=== PATIENT | female | born 1980 | race Caucasian/White ===

== ENCOUNTER 2017-05-22 11:21 | Observation (INO) ==
[2017-05-22 12:15] LABS: Bilirubin,Urine Negative (Negative); Blood,Urine Negative (Negative); Clarity,Urine Clear (Clear); Color,Urine Yellow (Yellow); Glucose,Urine (UA) Normal (Normal); Ketones,Urine Negative (Negative); Leukocyte Esterase,Urine Trace (Negative); Nitrite,Urine Negative (Negative); PH,Urine 7.5 pH Units (5.0-8.0); Protein,Urine Negative (Neg-Trace); Specific Gravity,Urine < 1.005 (1.010-1.025); Urobilinogen,Urine Normal (Normal)
[2017-05-22 12:17] LABS: Bacteria,Urine None Seen per hpf (None-Few); Hyaline Casts,Urine None Seen per lpf (None-Few); RBC,Urine 0-3 per hpf (0-3); Squamous Epithelial Cell,Urine Many per lpf (None-Few); WBC,Urine 0-3 per hpf (0-3)
[2017-05-22 12:20] LABS: Amphetamine Screen,Urine Negative ng/mL (Cutoff=1000); Barbiturate Screen,Urine Negative ng/mL (Cutoff=200); Benzodiazepines Screen,Urine Negative ng/mL (Cutoff=200); Cannabinoid Screen,Urine Negative ng/mL (Cutoff = 50); Cocaine Screen,Urine Negative ng/mL (Cutoff= 300); Opiate Screen,Urine Negative ng/mL (Cutoff=300); Phencyclidine Screen,Urine Negative ng/mL (Cutoff=25)
--- NOTE | 2017-05-22 12:29 | OB/GYN Progress Note ---
Date of Encounter: 05/22/17 Time of Encounter: 12:27 - Assessment and Plan (1) uterine contractions in third trimester, antepartum Current Visit: Yes Status: Acute FFN and affirm collected and negative Continue CEFM while in triage Terbutaline given to stop contractions - for patient comfort - effective Follow up as scheduled Discharge home Subjective - Subjective Interval history: Pt presents with c/o contractions. Denies vb, lof, lindsey, and blurry vision. Objective - Vital Signs Vital Signs: Intake and Output 05/21/17 05/22/17 05/22/17 23:59 07:59 15:59 Other: Weight 71.6 kg Patient Weight 05/22/17 23:59 Weight 71.6 kg - Exam FHR: auscultation normal Auscultation: bilateral: normal Abdomen: Present: normal appearance, soft, gravid Uterus: Present: normal Cervical dilation: ft Cervix effacement: 40 station: -4 - Labs Labs: Abnormal lab results Ur Specific [place] < 1.005 (1.010-1.025) L 05/22/17 11:43 Ur Leukocyte Esterase Trace (Negative) H 05/22/17 11:43 Ur Squamous Epith Cells Many per lpf (None-Few) H 05/22/17 11:43
[2017-05-22] MEDS ORDERED: Terbutaline 1 MG/ML VIAL SQ ONE (12:59)
[2017-05-22 13:39] LABS: Candida DNA Not Detected (Not Detect); Gardnerella DNA Not Detected (Not Detect); Trichomonas DNA Not Detected (Not Detect)
== END 2017-05-22 15:01 | disposition home or self-care (01) ==
LOC: 1NENULAB
PROVIDERS: ADMIT Obstetrics & Gynecology; ATTEND Obstetrics & Gynecology

== ENCOUNTER → 2017-07-17 12:16 | Observation (INO) ==
[2017-07-17 10:45] LABS: Basophils % 0.2 %; Eosinophils # 0.1 K/mcL (0.0-0.6); Eosinophils % 1.2 %; Hematocrit 35.6 % (35.3-44.9); Hemoglobin 11.5 g/dL (11.5-15.4); Immature Granulocytes % 0.8 % (0-4); Lymphocytes # 1.3 K/mcL (0.6-4.6); Lymphocytes % 14.1 %; Mean Corpuscular HGB Conc 32.3 g/dL (31.6-35.5); Mean Corpuscular Volume 89.7 fL (83.0-100.0); Mean Platelet Volume 10.2 fL (9.4-12.4); Monocytes # 0.5 K/mcL (0.0-1.3); Monocytes % 5.2 %; Neutrophils # 7.1 K/mcL (1.6-8.9); Platelet Count 188 K/mcL (140-400); Red Blood Count 3.97 M/mcL (3.82-4.97); Red Cell Distribution Width 13.5 % (11.5-14.5); Segmented Neutrophils % 78.5 %
[2017-07-17 10:53] LABS: Amphetamine Screen,Urine Negative ng/mL (Cutoff=1000); Barbiturate Screen,Urine Negative ng/mL (Cutoff=200); Benzodiazepines Screen,Urine Negative ng/mL (Cutoff=200); Cannabinoid Screen,Urine Negative ng/mL (Cutoff = 50); Cocaine Screen,Urine Negative ng/mL (Cutoff= 300); Opiate Screen,Urine Negative ng/mL (Cutoff=300); Phencyclidine Screen,Urine Negative ng/mL (Cutoff=25)
[2017-07-17 11:03] LABS: Protein/Creatinine Ratio,Urine 0.12 mg/mg (0.00-0.20)
[2017-07-17 11:04] LABS: Alanine Aminotransferase 13 Units/L (7-52); Aspartate Amino Transferase 17 Units/L (13-39); BUN/Creatinine Ratio 15 (6-26); Blood Urea Nitrogen 10 mg/dL (6-20); Lactate Dehydrogenase 166 Units/L (140-271); Uric Acid 4.7 mg/dL (2.3-7.6); eGFR For African Americans > 60 (> 60); eGFR For Non-African Americans > 60 (> 60)
[2017-07-17 11:18] LABS: Bilirubin,Urine Negative (Negative); Blood,Urine Negative (Negative); Clarity,Urine Clear (Clear); Color,Urine Yellow (Yellow); Glucose,Urine (UA) Normal (Normal); Ketones,Urine Trace mg/dL (Negative); Specific Gravity,Urine 1.018 (1.010-1.025)
[2017-07-17 11:19] LABS: Leukocyte Esterase,Urine Large (Negative); Nitrite,Urine Negative (Negative); PH,Urine 6.5 pH Units (5.0-8.0); Protein,Urine Negative (Neg-Trace); Urobilinogen,Urine Normal (Normal)
[2017-07-17 11:26] LABS: Bacteria,Urine None Seen per hpf (None-Few); Hyaline Casts,Urine None Seen per lpf (None-Few); RBC,Urine 0-3 per hpf (0-3); Squamous Epithelial Cell,Urine Many per lpf (None-Few); WBC,Urine 15-30 per hpf (0-3)
--- NOTE | 2017-07-17 11:59 | OB/GYN Progress Note ---
Date of Encounter: 07/17/17 Time of Encounter: 11:55 - Assessment and Plan (1) Headache in Current Visit: Yes Status: Acute PIH labs normal Serial VE no change BPs WNL Urine, ketones present: encouraged oral hydration Discharge home with PTL and PIH precautions Return to office for scheduled visit and prn Qualifiers: Trimester: third trimester Qualified Code(s): O26.893 - Other specified related conditions, third trimester; R51 - Headache; R51 - Headache (2) 36 weeks gestation of Current Visit: Yes Status: Acute (3) Breech presentation Current Visit: Yes Status: Acute Qualifiers: Fetus number: single or unspecified fetus Qualified Code(s): O32.1XX0 - Maternal care for breech presentation, not applicable or unspecified Subjective - Subjective Principal diagnosis: Increased BP at home Interval history: 36 year old at 36 weeks and 2 days presents to triage with reports increased BP at home and HAs that are relieved with Tylenol. Denies visual disturbance, RODRIGUES and epigastric pain. Positive movement, no vaginal bleeding, no leaking fluid. Objective - Vital Signs Vital Signs: Intake and Output 07/16/17 07/17/17 07/17/17 23:59 07:59 15:59 Other: Weight 75 kg Patient Weight 07/17/17 23:59 Weight 75 kg - Exam FHR: category 1 FHR comments: FHR baseline 140 Auscultation: bilateral: normal Abdomen: Present: soft, gravid Uterus: Present: normal Cervical dilation: 1 Cervix effacement: 50 station: -2 - Labs Labs: Abnormal lab results Ur Specimen Adequacy See below A 07/17/17 10:19 Urine Ketones Trace mg/dL (Negative) H 07/17/17 10:19 Ur Leukocyte Esterase Large (Negative) H 07/17/17 10:19 Urine Microscopic WBC 15-30 per hpf (0-3) H 07/17/17 10:19 Ur Squamous Epith Cells Many per lpf (None-Few) H 07/17/17 10:19
== END | disposition home or self-care (01) ==
LOC: 1NENULAB
PROVIDERS: ADMIT Obstetrics & Gynecology; ATTEND Obstetrics & Gynecology

== ENCOUNTER → 2017-07-27 14:40 | Observation (INO) ==
[2017-07-27 13:52] LABS: Basophils % 0.1 %; Eosinophils # 0.1 K/mcL (0.0-0.6); Eosinophils % 0.7 %; Hematocrit 37.3 % (35.3-44.9); Hemoglobin 12.2 g/dL (11.5-15.4); Immature Granulocytes % 0.7 % (0-4); Lymphocytes # 1.3 K/mcL (0.6-4.6); Lymphocytes % 12.9 %; Mean Corpuscular HGB Conc 32.7 g/dL (31.6-35.5); Mean Corpuscular Hemoglobin 28.5 pg (28.0-33.3); Mean Corpuscular Volume 87.1 fL (83.0-100.0); Mean Platelet Volume 10.5 fL (9.4-12.4); Monocytes # 0.8 K/mcL (0.0-1.3); Monocytes % 7.7 %; Neutrophils # 7.6 K/mcL (1.6-8.9); Platelet Count 199 K/mcL (140-400); Red Blood Count 4.28 M/mcL (3.82-4.97); Red Cell Distribution Width 13.5 % (11.5-14.5); Segmented Neutrophils % 77.9 %
[2017-07-27 14:02] LABS: Protein/Creatinine Ratio,Urine 0.11 mg/mg (0.00-0.20)
[2017-07-27 14:12] LABS: Alanine Aminotransferase 12 Units/L (7-52); Aspartate Amino Transferase 16 Units/L (13-39); BUN/Creatinine Ratio 15 (6-26); Blood Urea Nitrogen 8 mg/dL (6-20); Lactate Dehydrogenase 168 Units/L (140-271); eGFR For African Americans > 60 (> 60); eGFR For Non-African Americans > 60 (> 60)
--- NOTE | 2017-07-27 14:39 | OB/GYN Progress Note ---
Date of Encounter: 07/27/17 Time of Encounter: 14:32 - Assessment and Plan (1) Headache in Current Visit: Yes Status: Acute Serial BPs WNL PIH labs WNL Reactive NST Discharge home with Pre-eclampsia and labor precautions Kick counts discussed, to continue kick counts at home Follw up in office with routine care as scheduled and prn Qualifiers: Trimester: third trimester Qualified Code(s): O26.893 - Other specified related conditions, third trimester; R51 - Headache; R51 - Headache (2) 37 weeks gestation of Current Visit: Yes Status: Acute (3) Carpal tunnel syndrome during Current Visit: Yes Status: Acute Recommend wrist splints and ice packs to bilateral wrists and hands Subjective - Subjective Principal diagnosis: Headache in Interval history: 37 year old at 37 weeks 5 days presents to triage for evaluation of increased BP at home. Reports RODRIGUES that is unrelieved with Tylenol. Baby moving well, no vaginal bleeding, discharge or leaking fluid. Denies contractions. Reports upper abdominal pain at top of fundus "because she is breech," denies RUQ pain. Patient states that she has carpal tunnel in both hands and has intermittent pain and numbness. Antepartum ROS: movement normal, other, no loss of fluid, no vaginal bleeding, no contractions Objective - Exam FHR: auscultation normal, category 1 Auscultation: bilateral: normal Abdomen: Present: gravid Uterus: Present: normal - Labs Labs: Abnormal lab results Creatinine 0.55 mg/dL (0.60-1.20) L 07/27/17 13:37
[~2017-07-27 14:40] MED LIST: Prenatal Vit/FA 1 EACH TABLET PO SCH
[2017-07-27 17:46] LABS: Amphetamine Screen,Urine Negative ng/mL (Cutoff=1000); Barbiturate Screen,Urine Negative ng/mL (Cutoff=200); Benzodiazepines Screen,Urine Negative ng/mL (Cutoff=200); Cannabinoid Screen,Urine Negative ng/mL (Cutoff = 50); Cocaine Screen,Urine Negative ng/mL (Cutoff= 300); Opiate Screen,Urine Negative ng/mL (Cutoff=300); Phencyclidine Screen,Urine Negative ng/mL (Cutoff=25)
== END | disposition home or self-care (01) ==
LOC: 1NENULAB
PROVIDERS: ADMIT Student in an Organized Health Care Education/Training Program; ATTEND Student in an Organized Health Care Education/Training Program

== ENCOUNTER 2017-08-01 15:12 | Inpatient (IN) ==
[2017-08-01 11:21] LABS: Basophils % 0.3 %; Eosinophils % 0.5 %; Hematocrit 36.6 % (35.3-44.9); Hemoglobin 11.9 g/dL (11.5-15.4); Immature Granulocytes % 0.6 % (0-4); Lymphocytes # 1.1 K/mcL (0.6-4.6); Lymphocytes % 14.4 %; Mean Corpuscular HGB Conc 32.5 g/dL (31.6-35.5); Mean Corpuscular Hemoglobin 28.5 pg (28.0-33.3); Mean Corpuscular Volume 87.8 fL (83.0-100.0); Mean Platelet Volume 10.6 fL (9.4-12.4); Monocytes # 0.5 K/mcL (0.0-1.3); Monocytes % 6.4 %; Neutrophils # 6.1 K/mcL (1.6-8.9); Platelet Count 187 K/mcL (140-400); Red Blood Count 4.17 M/mcL (3.82-4.97); Red Cell Distribution Width 13.7 % (11.5-14.5); Segmented Neutrophils % 77.8 %
--- NOTE | 2017-08-01 11:34 | OB/GYN History & Physical ---
Date of Encounter: 08/01/17 Time of Encounter: 11:30 Assessment and Plan (1) 38 weeks gestation of Current visit: Yes Status: Acute (2) Gestational hypertension w/o significant proteinuria in 3rd trimester Current visit: Yes Status: Acute Dr. Hartman in to evaluate patient, decision to proceed with section due to elevated blood pressures. (3) Breech presentation Current visit: No Status: Acute verified by US performed by Dr. Hartman. Qualifiers: Fetus number: single or unspecified fetus Qualified Code(s): O32.1XX0 - Maternal care for breech presentation, not applicable or unspecified History of Present Illness HPI: Ms. Lynn is a 37 year old female here for PIH evaluation. Pt has had headache since Monday. Pt states her BP was elevated at home. Denies visual changes, or RUQ pain or discomfort. Reports good movement, denies vaginal bleeding or leaking of fluid. Pt has been evaluated in the past week for PIH, normal labs. Breech presentation at this time. Desires BPS. Labs: O+, Rubella equivicoal, varicella immune, GBS negative, all other serologies negative. Past Med Surg Social Fam HX - Past Medical History Medical history: no medical history Psychiatric history: no psych history - Past Surgical History Surgical History: no surgical history - Social History Smoking Status: Never smoker Smokeless Tobacco Status: No Alcohol use: none Drug use: none - Family History Mother Adopted: No Family Member Ethnicity: Non- Living Status: Still Living Hx Family Cardiac Disorders: Yes (HTN) Hx Family Respiratory Disorders: No Hx Family Cancer: No Hx Family GI Disorders: No Hx Family Endocrine Disorder: No Hx Family Neuromuscular Disorders: No Hx Family Neurologic Disorders: No Hx Family HEENT Disorders: No Hx Family Autoimmune Disorders: No Obstetrical History - Pregnancies : 4 Para: 3 Term: 2 : 1 Ab's: 0 Livin Medications and Allergies Pediatric Multivit Comb #25/FA [Flintstones Multivit Chew Tab] 1 tab PO DAILY [History] Omeprazole 20 mg PO DAILY 07/27/17 [History] 3 Allergy/AdvReac Type Severity Reaction Status Date / Time No Known Allergies Allergy Verified 07/17/17 10:42 Exam - Constitutional Constitutional: well developed, well nourished, no acute distress, average body habitus - Neck Neck exam: full ROM - Lungs Respiratory exam: CTAB - Cardiovascular Cardiovascular exam: RRR - Abdomen Abdomen: Present: bowel sounds normal, gravid, non tender - Extremities Extremities exam: normal capillary refill, normal inspection Deep Tendon Reflex Grade: 1+ Diminished - Uterus Uterus exam: Present: normal size, normal contour - Comments Comments: US confirms breech presentation. Results Result Diagrams: 08/01/17 10:40 08/01/17 10:40 All other labs normal. - VTE Reasons for not Prescribing Prophylaxis: Treatment not Indicated - Low risk for VTE
[2017-08-01 11:38] LABS: Alanine Aminotransferase 11 Units/L (7-52); Aspartate Amino Transferase 15 Units/L (13-39); BUN/Creatinine Ratio 15 (6-26); Blood Urea Nitrogen 9 mg/dL (6-20); Lactate Dehydrogenase 158 Units/L (140-271); Uric Acid 5.4 mg/dL (2.3-7.6); eGFR For African Americans > 60 (> 60); eGFR For Non-African Americans > 60 (> 60)
[2017-08-01 11:41] LABS: Amphetamine Screen,Urine Negative ng/mL (Cutoff=1000); Barbiturate Screen,Urine Negative ng/mL (Cutoff=200); Benzodiazepines Screen,Urine Negative ng/mL (Cutoff=200); Cannabinoid Screen,Urine Negative ng/mL (Cutoff = 50); Cocaine Screen,Urine Negative ng/mL (Cutoff= 300); Creatinine,Urine 182 mg/dL; Opiate Screen,Urine Negative ng/mL (Cutoff=300); Phencyclidine Screen,Urine Negative ng/mL (Cutoff=25); Protein/Creatinine Ratio,Urine 0.18 mg/mg (0.00-0.20)
--- NOTE | 2017-08-01 12:26 | Anesthesia Evaluation PreOp ---
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: Denies Any Significant HX Other Medical History: GERD Anesthesia History: No Prior Anesthetic Complications, Past Anesthesia (T&A) : Yes Alcohol Use: none Drug use: none Medications and Allergies Pediatric Multivit Comb #25/FA [Flintstones Multivit Chew Tab] 1 tab PO DAILY [History] Omeprazole 20 mg PO DAILY 07/27/17 [History] 3 Allergy/AdvReac Type Severity Reaction Status Date / Time No Known Allergies Allergy Verified 07/17/17 10:42 - Meds/Allergy Pre-op Review Medications Reviewed: Yes Allergies Reviewed: Yes Beta Blockers on Current Med List: No Anesthesia Results - Labs 08/01/17 10:40 08/01/17 10:40 Anesthesia Exam BP 148/77 P 76 R 16 T97.8 Height: 5'3" Weight: 74.7kg NPO (# of Hours): 12hrs solids, 4hrs water Pain Scale: 0 Pain Scale Used: Numeric (1 - 10) - HEENT Pupil (Motor): Pupils equal Mallampati: II Teeth: Normal Oral Opening: Greater than 3 - WASTEWATER [employer] CIVIL ENGINEER LOC: Oriented [employer]IV[employer] ENGINEER Motor: Normal RUE, Normal LUE, Normal RLE, Normal LLE, Normal Face [employer]IV[employer]ER Sensory: Normal: RUE, LUE, RLE, LLE, Face - Cardiac Rhythm: Regular Murmur: None JVD: No Carotid Bruit: No - Pulmonary Breath Sounds: bilateral Clear Respiratory Effort: Symmetrical Anesthesia Assess/Plan ASA Score: 2 Modified [employer] Scale for Level of Consciousness: Cooperative, oriented, and tranquil Anesthetic Plan: Regional Autologous Blood: No Monitoring Plan: Standard Monitors Recovery Plan: PACU
--- NOTE | 2017-08-01 13:54 | Anesthesia Procedures ---
Date of Encounter: 08/01/17 Time of Encounter: 13:10 Procedures: Anesthesia - Epidural/Spinal Patient ID/Chart reviewed: Yes Patient examined: Yes OB Eval: Gestational age: 38.3 OB Eval: : 4 OB Eval: Hx Para: 3 OB Eval: Contractions: Non-stressed pattern Consent Obtained: Yes Supplemental Oxygen: None/Room Air Site Prep: Aseptic Technique, Sterile prep and drape, Povidone-Iodine 1% Patient position: upright Local Anesthetic: other (lidocaine 0.2%) Amount of Local Anesthetic used: 3 Interspace Used: L4-L5 Blood: No CSF: Yes Paresthesia: No Spinal Needle Gauge: 24 Spinal Dose: Bupivicaine 0.5% in NACL Fent 25mcg Morph 200mcg Procedure: Intrathecal dose administered 2nd pass 24G sprotte in upright position. No immediate complications noted. VSS Vitals + FHT's: see anesthesia record
--- NOTE | 2017-08-01 14:45 | OB/GYN Procedure Note ---
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 - Diagnosis Date of procedure: 08/01/17 Pre-op diagnosis: breech presentation, gestational HTN Post-op diagnosis: same - Procedure Procedure: Primary with bilateral tubal ligation Surgeon: Aleida Hartman Was there an regulatory assistant present: Yes Hedge Fund Trader: Sung Chowdary Anesthesia Type: General Estimated blood loss (cc): 700 Fluids: crystalloid Procedure Complications: none Specimens collected: placenta, bilateral tubes Disposition: floor Findings: normal looking uterus, ovaries and tubes Narrative: The patient was brought to the operating room and was given satisfactory spinal anesthesia. The abdomen was prepped and draped in a sterile fashion. A Pfannenstiel incision was made and carried sharply down to the level of fascia. The fascia was incised transversely. The fascia was dissected away from the underlying rectus muscles. With sharp and blunt dissection, the rectus muscles were divided in midline. The peritoneum was entered bluntly. The incision was carried vertically with scissors. A transverse incision was made across the bladder peritoneum. The bladder was dissected away from the underlying lower uterine segment. A bladder retractor was placed to protect the bladder. The lower uterine segment was entered sharply with a scalpel. The incision was manually extended. Clear amniotic fluid was encountered. The was noted to be breech and was delivered easily. The mouth and oropharynx were suctioned. The cord was clamped and cut. The was passed off to the waiting nurse in satisfactory condition. APGARS 8/9. Cord blood was taken. Weight 3365g Placenta was extracted completely and found to be intact. The uterus was explored and found to be empty. The uterus was delivered through the abdominal incision and massaged vigorously. Intravenous Pitocin was administered. Clamps were placed about the margins of the uterine incision, which was closed primarily with a running locking stitch of 0 Vicryl with adequate hemostasis. Secondary running locking stitch was placed for extra strength to the wound. At this point, attention was diverted to the patient's tubes, a Nicolle clamp grasped the isthmic portion of each tube and approximately 1-cm knuckle on either side was tied off with two lengths of 0 plain catgut. Intervening knuckle was excised and passed off the field. The proximal end of the tubal mucosa was cauterized. The uterus was returned to its proper anatomic position in the abdomen. The fascia was closed with a simple running stitch of 0 vicryl. The subcutaneous tissue was closed with 3-0 vicryl. The skin was closed with running subcuticular stitch of 4-0 vicryl. The uterus was expressed of its contents. The patient was brought to the recovery room in satisfactory condition. There were no complications. There was 700 cc of blood loss. All sponge, needle, and instrument counts were reported to be correct.
[~2017-08-01 15:12] MED LIST changes: +*HR* FentaNYL (PF) 100 MCG/2 ML VIAL ONE; +*HR* Labetalol 20 MG/4 ML SYRINGE IVP PRN; +*HR* Meperidine 25 MG/ML SYRINGE IVP PRN; +*HR* OxyCODONE Immed Rel 5 MG TABLET PO PRN; +*HR* OxyCODONE/APAP 5/325 TABLET PO PRN; +*HR* Oxytocin 10 UNIT/ML VIAL IM ONE; +*HR* Promethazine 25 MG/ML VIAL IVP PRN; +CeFAZolin Premix DUPLEX 2,000 MG/50 ML BAG IVPB ONE; +Dexamethasone 4 MG/ML VIAL ONE; +EPHEDrine 50 MG/ML VIAL ONE; +Famotidine 20 MG/2 ML VIAL IVP ONE; +Lidocaine -MPF 2% 5 ML VIAL ONE; +Metoclopramide 10 MG/2 ML VIAL IVP ONE; +Metoclopramide 10 MG/2 ML VIAL IVP PRN; +Morphine Sulfate/PF 5mg/10mL Vial ONE; +Ondansetron 4 MG/2 ML VIAL IVP ONE; +Ondansetron 4 MG/2 ML VIAL IVP PRN; +Ondansetron 4 MG/2 ML VIAL ONE; +Oxytocin 20 units/ LR 1000 mL 20 UNIT/1,000 ML BAG IVC ONE; +Oxytocin 20 units/ LR 1000 mL 20 UNIT/1,000 ML BAG IVC SCH; -Prenatal Vit/FA 1 EACH TABLET PO SCH; +Ringers Solution, Lactated 1,000 ML IVC ONE; +Ringers Solution, Lactated 1,000 ML IVC SCH; +Ringers Solution, Lactated 1,000 ML ONE; +Sennosides 8.6 MG TABLET PO PRN; +Simethicone 80 MG TAB.CHEW PO PRN
--- NOTE | 2017-08-01 15:39 | Anesthesia Evaluation Post Op ---
Date of Encounter: 08/01/17 Time of Encounter: 15:37 - Vital Signs Vital Signs: BP 115/68 P 89 R 16 T 98.6 - Lungs Lungs: Clear Ascult./Percussion - Airway Airway: Non-obstructed - Cardiovascular Regular Rate - Mental Status Mental Status: Alert & Oriented, Answers Appropriately - Pain Pain Scale: 0 Pain Scale used: Numeric (1 - 10) - Nausea Vomiting Nausea Vomiting: Not Present - Hydration Hydration: NPO, Abebe catheter - Discharge PostOp Status: Transfer Patient to floor
[2017-08-02 04:47] LABS: Basophils % 0.1 %; Hematocrit 30.3 % (35.3-44.9); Hemoglobin 9.9 g/dL (11.5-15.4); Immature Granulocytes % 0.3 % (0-4); Lymphocytes # 1.3 K/mcL (0.6-4.6); Lymphocytes % 8.6 %; Mean Corpuscular HGB Conc 32.7 g/dL (31.6-35.5); Mean Corpuscular Hemoglobin 28.2 pg (28.0-33.3); Mean Corpuscular Volume 86.3 fL (83.0-100.0); Mean Platelet Volume 10.5 fL (9.4-12.4); Monocytes # 0.8 K/mcL (0.0-1.3); Monocytes % 5.5 %; Neutrophils # 12.8 K/mcL (1.6-8.9); Platelet Count 187 K/mcL (140-400); Red Blood Count 3.51 M/mcL (3.82-4.97); Segmented Neutrophils % 85.5 %
[2017-08-02] MEDS: *HR* OxyCODONE/APAP 5/325 TABLET PO PRN ×2 (05:19→17:00)
--- NOTE | 2017-08-02 08:23 | OB/GYN Progress Note ---
Date of Encounter: 08/02/17 Time of Encounter: 08:21 - Assessment and Plan (1) Status post repeat low transverse section Current Visit: Yes Status: Acute Continue routine care remove dressing tomorrow possible discharge home tomorrow (2) Status post tubal ligation Current Visit: Yes Status: Acute Continue routine Post op care. Subjective - Subjective Principal diagnosis: Status Post repeat c/s and tubal ligation, Gestational HTN Interval history: Patient doing well. Tolerating regular diet. Patient denies any pain at this time. Patient reports: appetite normal, voiding normally, pain well controlled, ambulating normally [place]: doing well, bottle feeding Objective - Vital Signs Latest vital signs: Vital Signs Temp Pulse Pulse Resp BP Pulse Ox 08/02/17 07:50 98.7 F 78 16 128/77 97 08/02/17 04:45 98.7 F 85 16 121/78 95 08/02/17 00:05 98.7 F 82 16 117/76 97 08/01/17 20:00 98.4 F 89 14 129/84 98 08/01/17 19:00 98.1 F 81 80 16 133/82 97 08/01/17 18:00 98.5 F 78 78 16 131/76 98 08/01/17 17:30 98.3 F 74 74 16 127/73 99 08/01/17 17:21 70 12 08/01/17 17:00 97.6 F 70 12 139/73 97 Intake and Output 08/01/17 08/02/17 08/02/17 23:59 07:59 15:59 Intake Total 120 / 120 Output Total 900 / 900 1600 / 1600 Balance -780 / -780 -1600 / -1600 Intake: Oral 120 / 120 Output: Urine 400 / 400 Catheter 900 / 900 1200 / 1200 Other: Weight 68.3 kg 69.309 kg Patient Weight 08/02/17 23:59 Weight 69.309 kg - Exam Lungs: bilateral: normal Chest: Normal S1, Normal S2 Extremities: Present: normal Abdomen: Present: normal appearance, soft Incision: Present: normal, dry, dressed (Medipore dressing) Uterus: Present: normal, firm Fundal Height: 2 (U/2) - Labs Labs: Laboratory Results - last 24 hr 08/01/17 08/01/17 08/01/17 10:39 10:40 10:40 WBC 7.9 RBC 4.17 Hgb 11.9 Hct 36.6 MCV 87.8 MCH 28.5 MCHC 32.5 RDW 13.7 Plt Count 187 MPV 10.6 Immature Gran % 0.6 Seg Neutrophils % 77.8 Lymphocytes % 14.4 Monocytes % 6.4 Eosinophils % 0.5 Basophils % 0.3 Neutrophils # 6.1 Lymphocytes # 1.1 Monocytes # 0.5 Eosinophils # 0.0 Basophils # 0.0 BUN 9 Creatinine 0.62 Est GFR ( Amer) > 60 Est GFR (Non-Af Amer) > 60 BUN/Creatinine Ratio 15 Uric Acid 5.4 AST 15 ALT 11 Lactate Dehydrogenase 158 Urine Creatinine 182 Protein/Creatinin Ratio 0.18 Urine Total Protein 32 H Urine Opiates Screen Negative Ur Barbiturates Screen Negative Ur Phencyclidine Scrn Negative Ur Amphetamines Screen Negative U Benzodiazepines Scrn Negative Urine Cocaine Screen Negative U Marijuana (THC) Screen Negative 08/02/17 04:16 WBC 15.0 H D RBC 3.51 L Hgb 9.9 L D Hct 30.3 L MCV 86.3 MCH 28.2 MCHC 32.7 RDW 14.0 Plt Count 187 MPV 10.5 Immature Gran % 0.3 Seg Neutrophils % 85.5 Lymphocytes % 8.6 Monocytes % 5.5 Eosinophils % 0.0 Basophils % 0.1 Neutrophils # 12.8 H Lymphocytes # 1.3 Monocytes # 0.8 Eosinophils # 0.0 Basophils # 0.0 BUN Creatinine Est GFR ( Amer) Est GFR (Non-Af Amer) BUN/Creatinine Ratio Uric Acid AST ALT Lactate Dehydrogenase Urine Creatinine Protein/Creatinin Ratio Urine Total Protein Urine Opiates Screen Ur Barbiturates Screen Ur Phencyclidine Scrn Ur Amphetamines Screen U Benzodiazepines Scrn Urine Cocaine Screen U Marijuana (THC) Screen
[2017-08-02] MEDS: Prenatal Vit/FA 1 EACH TABLET PO SCH (08:47)
[2017-08-02] MEDS: Ibuprofen 600 MG TABLET PO PRN ×2 (11:55→20:47)
[2017-08-03] MEDS: *HR* OxyCODONE/APAP 5/325 TABLET PO PRN ×2 (06:00→11:51)
[2017-08-03 08:02] VITALS: BP 135/80
[2017-08-03] MEDS: Prenatal Vit/FA 1 EACH TABLET PO SCH (08:17)
[2017-08-03] MEDS: Ibuprofen 600 MG TABLET PO PRN (08:18)
--- NOTE | 2017-08-03 10:21 | Discharge Summary ---
Date of Encounter: 08/03/17 Time of Encounter: 10:15 - Discharge Diagnosis (1) Status post repeat low transverse section Priority: Primary Status: Acute Comments: Meeting all pp milestones, tolerates regular diet, bottle feeding, desires discharge. - Discharge Medications Prescriptions: OxyCODONE/APAP 5/325 [Percocet 5/325 MG] 1 each PO Q4HR PRN 5 Days #20 tablet PRN Reason: Moderate pain 4-6 Ibuprofen [Motrin] 600 mg PO Q6HR PRN #60 tablet PRN Reason: Cramping Docusate [Colace] 100 mg PO BID #60 capsule Ferrous Sulfate 325 mg PO DAILY #60 tablet Home Medications: Pediatric Multivit Comb #25/FA [Flintstones Multivit Chew Tab] 1 tab PO DAILY [History] Omeprazole 20 mg PO DAILY 07/27/17 [History] Docusate [Colace] 100 mg PO BID #60 capsule 08/03/17 [Rx] Ferrous Sulfate 325 mg PO DAILY #60 tablet 08/03/17 [Rx] Ibuprofen [Motrin] 600 mg PO Q6HR PRN #60 tablet 08/03/17 [Rx] OxyCODONE/APAP 5/325 [Percocet 5/325 MG] 1 each PO Q4HR PRN 5 Days #20 tablet [Rx] Vit/FA 1 each PO DAILY tablet 08/03/17 [Rx] Allergies/Adverse Reactions: 3 Allergy/AdvReac Type Severity Reaction Status Date / Time No Known Allergies Allergy Verified 07/17/17 10:42 Data Procedures and tests throughout hospitalization: Laboratory Tests 08/01/17 08/01/17 08/01/17 10:39 10:40 10:40 WBC 7.9 RBC 4.17 Hgb 11.9 Hct 36.6 MCV 87.8 MCH 28.5 MCHC 32.5 RDW 13.7 Plt Count 187 MPV 10.6 Immature Gran % 0.6 Seg Neutrophils % 77.8 Lymphocytes % 14.4 Monocytes % 6.4 Eosinophils % 0.5 Basophils % 0.3 Neutrophils # 6.1 Lymphocytes # 1.1 Monocytes # 0.5 Eosinophils # 0.0 Basophils # 0.0 BUN 9 Creatinine 0.62 Est GFR ( Amer) > 60 Est GFR (Non-Af Amer) > 60 BUN/Creatinine Ratio 15 Uric Acid 5.4 AST 15 ALT 11 Lactate Dehydrogenase 158 Urine Creatinine 182 Protein/Creatinin Ratio 0.18 Urine Total Protein 32 H Urine Opiates Screen Negative Ur Barbiturates Screen Negative Ur Phencyclidine Scrn Negative Ur Amphetamines Screen Negative U Benzodiazepines Scrn Negative Urine Cocaine Screen Negative U Marijuana (THC) Screen Negative 08/02/17 04:16 WBC 15.0 H D RBC 3.51 L Hgb 9.9 L D Hct 30.3 L MCV 86.3 MCH 28.2 MCHC 32.7 RDW 14.0 Plt Count 187 MPV 10.5 Immature Gran % 0.3 Seg Neutrophils % 85.5 Lymphocytes % 8.6 Monocytes % 5.5 Eosinophils % 0.0 Basophils % 0.1 Neutrophils # 12.8 H Lymphocytes # 1.3 Monocytes # 0.8 Eosinophils # 0.0 Basophils # 0.0 BUN Creatinine Est GFR ( Amer) Est GFR (Non-Af Amer) BUN/Creatinine Ratio Uric Acid AST ALT Lactate Dehydrogenase Urine Creatinine Protein/Creatinin Ratio Urine Total Protein Urine Opiates Screen Ur Barbiturates Screen Ur Phencyclidine Scrn Ur Amphetamines Screen U Benzodiazepines Scrn Urine Cocaine Screen U Marijuana (THC) Screen Date of admission: 08/01/17 15:12 Primary care physician: Iesha Murphy MD Discharging clinician: Bernadette Law Anticipated date of discharge: 08/03/17 - Patient Status Disposition: Home, Self-Care Condition: Good Functional capacity at discharge: independent ambulation Overall status at discharge: patient is back to baseline - Discharge Instructions Follow Up With: Iesha Murphy MD [Primary Care Provider] - Adam Sharma MD [Partnered Physician] - - Diet and Activity Activity: resume usual activities as tolerated Diet: regular diet Hospital Course Reason for admission: section, IUP at term Delivery: section Episiotomy: none Laceration: none Other procedures: none complications: none Discharge diagnosis: IUP at term delivered baby: female Hospital course: Diagnosis Date of procedure: 08/01/17 Pre-op diagnosis: breech presentation, gestational HTN Post-op diagnosis: same - Procedure Procedure: Primary with bilateral tubal ligation Surgeon: Aleida Hartman Was there an assistant professor of geography present: Yes Entrepreneurship Program Director: Sung Chowdary Anesthesia Type: General Estimated blood loss (cc): 700 Fluids: crystalloid Procedure Complications: none Specimens collected: placenta, bilateral tubes Disposition:Stable in PP and appropriate for discharge. OAARS reviewed Time Attestation: Total time spent providing and/or coordinating discharge services: Time Spent: Less than 30 minutes - VTE Reasons for not Prescribing Prophylaxis: Treatment not Indicated - Low risk for VTE Documentation of Mechanical Device: Intermittent pneumatic compression device Exam - Constitutional Vitals: Temp Pulse Resp BP Pulse Ox 98.5 F 74 14 135/80 97 08/03/17 08:00 08/03/17 08:53 08/03/17 08:53 08/03/17 08:00 08/03/17 08:00 General appearance IM: A&O X 3 - Respiratory Respiratory exam: Present: CTAB - Cardiovascular Cardiovascular exam IM: Present: RRR - GI/Abdominal GI/Abdominal exam IM: normal bowel sounds, soft Incision: intact - Uterine Tone: Firm Uterus Position: At Umbilicus - Extremities Exam Extremities exam IM: Present: normal capillary refill, normal inspection - Neurological Exam Neurological exam: normal gait, oriented X3 - Psychiatric Additional comments: Reports good mood.
== END 2017-08-03 13:30 | disposition home or self-care (01) | DRG 766 ==
LOC: 1NENULAB → 1NENUOBS 16:59
PROVIDERS: ADMIT Student in an Organized Health Care Education/Training Program; ATTEND Student in an Organized Health Care Education/Training Program